=== PATIENT | female | born 1955 | race Caucasian/White ===

== ENCOUNTER 2017-10-08 14:14 | Observation (INO) | payer OTHER, SELFPAY ==
[2017-10-08] MEDS ORDERED: ISOVUE-370 76%-LOCM 1 ML ONE (14:37)
[2017-10-08 14:53] LABS: #Lymphocytes 0.8 thou/uL (1.20-3.40); #Monocytes 0.4 thou/uL (0.11-0.59); #Neutrophils 3.8 thou/uL (1.40-6.50); %Basophils 0.8 % (0.0-1.0); %Eosinophils 0.3 % (0.0-10.0); %Lymphocytes 15.5 % (21.0-51.0); %Monocytes 8.3 % (0.0-10.0); %Neutrophils 75.1 % (42.0-75.0); Hemoglobin 14.6 g/dL (12.0-16.0); Mean Corpuscular HGB CONC 34.2 g/dL (32.0-36.0); Mean Corpuscular Hemoglobin 34.1 pg (27.0-31.0); Mean Corpuscular Volume 99.7 fl (81.0-99.0); Mean Platelet Volume 8.9 fL (7.4-10.4); Platelet Count 145 thou/uL (130-400); RBC Distribution Width 11.3 % (11.5-14.5); Red Blood Cell (RBC) Count 4.28 mill/uL (4.20-5.40); White Blood Cell (WBC) Count 5.1 thou/uL (4.8-10.8)
[2017-10-08 15:14] LABS: ALT (SGPT) 24 U/L (8-55); AST (SGOT) 23 U/L (5-34); Albumin 4.9 g/dL (3.5-5.0); Alkaline Phosphatase 72 U/L (40-150); Anion Gap 15 mmol/L (10-20); BUN (Urea Nitrogen) 14 mg/dL (9.8-20.1); Bilirubin, Total 0.7 mg/dL (0.2-1.2); CK (CPK) 122 U/L (29-168); Calc. Creatinine Clearance 0 mL/min (70-130); Calcium 9.8 mg/dL (7.8-10.44); Carbon Dioxide 25 mmol/L (22-29); Chloride 105 mmol/L (98-107); Estimated GFR-MDRD 78; Glucose 94 mg/dL (70-105); Lipase 8 U/L (8-78); Protein, Total 7.9 g/dL (6.0-8.3); Sodium 141 mmol/L (136-145)
[2017-10-08 15:17] LABS: CKMB 2.1 ng/mL (0-6.6); Troponin I Less than 0.010 ng/mL (< 0.028)
--- NOTE | 2017-10-08 15:27 | RAD ---
CHEST 1 VIEW: Date: 10/08/17 HISTORY: Altered mental status. FINDINGS: No comparison. Cardiac silhouette is magnified by projection. Lungs are hyperinflated. Mediastinum is midline. Pulmo nary vasculature is unremarkable. There is no lobar consolidation or evidence of pneumothorax. Cardia c monitor leads overlie the chest. IMPRESSION: COPD. POS: [facility]
--- NOTE | 2017-10-08 15:28 | CT ---
CT HEAD NONCONTRAST DATE: 10/08/17 HISTORY: Altered mental status. FINDINGS: No comparison. There is no evidence of acute intracranial hemorrhage or infarct. The ventricles appear normal in siz e, shape, and position. There is no mass effect or shift of midline structures. Visualized paranasal sinuses remain well aerated. IMPRESSION: No acute intracranial abnormalities are demonstrated on noncontrast CT head. POS: [facility]
[2017-10-08 17:02] VITALS: BMI 24.3
--- NOTE | 2017-10-08 17:50 | HP ---
HISTORY OF PRESENT ILLNESS: Mrs. Woodruff is a 62-year-old woman, earlier today while attendin g some sport event with her children, she suddenly became confused and was repeating herself did not know where she was. This lasted about 1.5 hour. There was no associated physical weakness. She was brought to the ER. She was felt to have possible TIA. She has been admitted for evaluation and man agement. She denies any prior headache, denies any seizure, and denies any similar event in the past . PAST MEDICAL HISTORY: Remarkable for possibly hypertension. She claimed that she was told that she had a white coat hypertension and she was not on any medications. She denies diabetes, heart disease , lung disease, or liver disease. PAST SURGICAL HISTORY: Remarkable for tonsillectomy. ALLERGIES: She does not have any known allergy to medication. SOCIAL HISTORY: She denies any history of cigarette smoking, ETOH abuse or drug abuse. FAMILY HISTORY: Reviewed and is not contributory. MEDICATIONS: Prior to admission, she was not on any medication. REVIEW OF SYSTEMS: Constitutional: She denies any fever, denies any weakness. HEENT: No headache, no ocular pain, no sore throat, no rhinorrhea, no earache, no epistaxis. Neck: No neck pain, no ne ck stiffness. Cardiovascular: No shortness of breath. No chest pain. Pulmonary: No coughing. Ga strointestinal: No nausea, no vomiting, no diarrhea, no abdominal pain. Genitourinary: No dysuria, no hematuria. Endocrinology: No heat or cold intolerance. No polyuria, polydipsia or polyphagia. Musculoskeletal: No arthralgia, no myalgia. Hematology: No abnormal bleeding, no ecchymosis. Lym phatics: No palpable lymphadenopathy. No painful lymphadenopathy. Skin: No rash, no itching. All ergies: No hayfever. Neurological: No seizure. Psychiatric: No anxiety and no depression. PHYSICAL EXAMINATION: GENERAL: At the current time, she is alert and oriented, in no distress. VITAL SIGNS: Her latest vital signs show a temperature of 97.2, pulse rate 90, respiratory rate 17, and blood pressure 174/106. HEENT: Head is normocephalic and atraumatic. Both of her pupils are equally reactive. Ears and nos e are normal. Oral mucosa is moist. Pharyngeal area is clear. NECK: Supple. There is no distention of the jugular vein. No lymphadenopathy felt. Thyroid gland is not palpable. There is no carotid bruit. CHEST: Symmetrical with regular S1, S2. LUNGS: Clear. ABDOMEN: Soft. Bowel sounds heard. I could not appreciate any organomegaly. There is no focal are a of tenderness. EXTREMITIES: Limbs showed no edema. NEUROLOGIC: She moves all extremities. LABORATORY DATA: Chemistry and electrolytes are done today show sodium of 141, potassium of 4, chlor ramila of 105, CO2 of 25, BUN of 14, creatinine of 0.76, glucose of 94, calcium of 9.8, total bilirubin of 0.7, AST of 23, ALT of 24, alkaline phosphatase of 72. Troponin is less than 0.01. BNP 71.8, tot al protein 7.9, albumin 4.9, globulin 3.0, lipase 8. CBC showed WBC of 5.1, hemoglobin of 14.6, topher tocrit of 42.7, MCV of 99.7, and platelets of 145. IMAGING: Chest x-ray was reported to be sluggish consistent with COPD. Brain CT was reported to ananya w no acute abnormality. ASSESSMENT AND PLAN: This is a 62-year-old woman with history of hypertension and hyperlip idemia, who was admitted with sudden onset of confusion, which lasted about 90 minutes. The patient has not been on any medications, has not been on any narcotics, and not on benzodiazepine. Suspect p ossible transient ischemic attack evaluation is in progress. The patient will be admitted to the [facility]. She is started on aspirin and statin. We will check a CT angiogram of head and neck. Armando rology consult was called. Further evaluation and management will depend on the course of the hospit alization and her response to therapy. We will followup her urine drug screen. Her blood pressure w as noticed to be elevated. We will start her on enalapril IV p.r.n. and will initiate therapy with p .o. beta-jeffrey, namely metoprolol.
[2017-10-08] MEDS ORDERED: Enalaprilat Dihydrate 1.25 MG/ML VIAL SLOW IVP PRN (18:12)
[2017-10-08 18:50] LABS: Syphilis Antibody Nonreactive (Nonreactive); Syphilis Antibody Index 0.05 S/CO (<1.00 Non-Reactive)
--- NOTE | 2017-10-08 19:08 | CT ---
CT ANGIOGRAM BRAIN WITH IV CONTRAST AND 3D RECONSTRUCTION CT ANGIOGRAM NECK WITH IV CONTRAST AND 3D RECONSTRUCTION 10/08/17 HISTORY: Patient with confusion. Repeating questions. TIA. CT ANGIOGRAM NECK: There is a normal arrangement of the great vessels at the aortic arch which are patent. The most prox imal aspect of the left common carotid artery is partially obscured due to artifact from dense contra st in the innominate vein but is otherwise patent. The bilateral subclavian arteries where visualized are patent. Bilateral common carotid arteries as well as internal carotid arteries are patent. There are codominant and patent bilateral vertebral arteries. The visualized upper lung zones are clear. Mild degenerative changes are seen in the spine. The right submandibular gland is small in size which may be developmental in origin. There is no lymp hadenopathy seen. Thyroid gland is normal in appearance. There is a small mucus retention cyst seen in the left maxillary antrum. IMPRESSION: Patent bilateral internal carotid arteries and patent bilateral vertebral arteries according to NASCE T criteria. CT ANGIOGRAM BRAIN: The anterior cerebral and middle cerebral arteries are patent bilaterally. There is a patent anterior communicating artery visualized. There is a type origin of the left posterior cerebral artery which is patent. The basilar artery and each posterior cerebral artery are patent. No aneurysm is seen within the limitations of the technique of this examination. IMPRESSION: 1. No focal stenosis or branch occlusion is seen involving the [place] or vertebrobasil ar system. 2. No aneurysm is identified within the limitations of the technique of this examination. POS: [facility]
[2017-10-08] MEDS ORDERED: Melatonin 3 MG TAB PO SCH (20:15)
[2017-10-08] MEDS: Metoprolol Tartrate 25 MG TAB PO SCH (20:58)
[2017-10-08] MEDS ORDERED: Atorvastatin Calcium 40 MG TAB PO SCH (21:00)
[2017-10-09 05:50] LABS: ALT (SGPT) 20 U/L (8-55); AST (SGOT) 20 U/L (5-34); Albumin 4.2 g/dL (3.5-5.0); Alkaline Phosphatase 61 U/L (40-150); Anion Gap 11 mmol/L (10-20); BUN (Urea Nitrogen) 13 mg/dL (9.8-20.1); Bilirubin, Total 0.7 mg/dL (0.2-1.2); Calc. Creatinine Clearance 101 mL/min (70-130); Calcium 9.3 mg/dL (7.8-10.44); Carbon Dioxide 27 mmol/L (22-29); Cardiac Risk 3.2 (Less than 4.5); Chloride 106 mmol/L (98-107); Cholesterol 211 mg/dl (< 200 Desired); Estimated GFR-MDRD 83; Globulin 2.3 g/dL (2.4-3.5); Glucose 90 mg/dL (70-105); HDL Cholesterol 65 mg/dL (>60 Neg Risk); LDL Cholesterol, Calculated 133 mg/dL; Potassium 4.1 mmol/L (3.5-5.1); Protein, Total 6.5 g/dL (6.0-8.3); Sodium 140 mmol/L (136-145); Triglycerides 66 mg/dL (Less than 150)
[2017-10-09] MEDS: Metoprolol Tartrate 25 MG TAB PO SCH (08:31)
[2017-10-09] MEDS ORDERED: Enoxaparin Sodium 30 MG/0.3 ML SYRINGE SC SCH (09:00)
[2017-10-09] MEDS ORDERED: Aspirin 325 mg Enteric Coated Tablet PO SCH (09:00)
--- NOTE | 2017-10-09 09:18 | PDOC.PN ---
- Subjective Encounter Start Date: 10/09/17 Encounter Start Time: 08:40 No complaint.. - Objective Vital Signs & Weight: Vital Signs (12 hours) Temp Pulse Resp BP Pulse Ox 10/09/17 07:39 97.7 F 73 18 155/100 H 97 10/09/17 04:00 98.1 F 70 12 154/100 H 99 10/08/17 23:47 98.0 F 65 16 133/93 H 99 Weight Weight 170 lb Result Diagrams: 10/08/17 14:48 10/09/17 04:49 Phys Exam - Physical Examination Constitutional: NAD HEENT: PERRLA Neck: no JVD Respiratory: clear to auscultation bilateral Cardiovascular: RRR Gastrointestinal: soft Musculoskeletal: no edema Neurological: moves all 4 limbs Psychiatric: A&O x 3 Dx/Plan (1) TIA (transient ischemic attack) Status: Acute Plan: f/u with neurology.. Comment: w/u negative so far. (2) HTN (hypertension) Code(s): I10 - ESSENTIAL (PRIMARY) HYPERTENSION Status: Acute Plan: increase Lopressor to 50 mg bid. Comment: BP is elevated.. (3) Hyperlipidemia Code(s): E78.5 - HYPERLIPIDEMIA, UNSPECIFIED Status: Acute Plan: Started on Statin. - Plan * .
--- NOTE | 2017-10-09 11:34 | MRI ---
BRAIN MRI WITH AND WITHOUT CONTRAST: Date: 10/09/17 INDICATION: TIA. Reference made to preceding head CT, 10/08/17. FINDINGS: No evidence of ventriculomegaly, mass effect, midline shift, or acute territorial infarction. No intr acranial hemorrhagic susceptibility is present. There are no significant signal abnormalities in the brain parenchyma. No pathologic intra-axial enhancement. Retention cyst formation seen at the posteri or left maxillary sinus. Imaged skull base flow-voids are maintained. IMPRESSION: Normal contrast enhanced brain MRI. POS: [facility]
[2017-10-09 11:55] VITALS: BP 142/95; TEMP 98.3
--- NOTE | 2017-10-09 16:05 | CON ---
DATE OF CONSULTATION: 10/09/2017 CONSULTING PHYSICIAN: Hospitalist Service. IMPRESSION: 1. Transient amnestic episode. 2. Hypertension. 3. Hyperlipidemia with a good ratio. PLAN: 1. Aspirin 81 mg per day. 2. Address blood pressure. 3. MRI of the brain. 4. Carotid ultrasound. Ms. Woodruff is a 62-year-old white female with no known past history. She presented yesterday with an e pisode of transient amnesia, lasting approximately an hour and a half. She had conversations with he r children and sister and only remembers pieces of what took place. She apparently drove home from a baseball field without any difficulty. She remembers the code to get into the garage. She was othe rwise performing in a normal fashion. She does not recall any type of headache, nausea, vomiting, ve rtigo, lateralized weakness or numbness. She has no history of migraine or TIA. She came into the e mergency room last night and had a CT of the brain and CT angiogram, either of which showed anything remarkable. Her laboratory studies were otherwise negative for any metabolic abnormalities. She has not used any illicit drugs. She has taken some Sudafed recently for sinus problems. She was noted to be hypertensive with diastolics around 93 to 100. PAST MEDICAL HISTORY: Otherwise, negative. ALLERGIES: None. SOCIAL HISTORY: No tobacco or illicit drug use. FAMILY HISTORY: Positive for hypertension, hyperlipidemia. REVIEW OF SYSTEMS: Otherwise, negative. No history of seizures. PHYSICAL EXAMINATION: VITAL SIGNS: Blood pressure 155/100, pulse 73, respirations 18, temperature 97.7. HEENT: Pupils equal and reactive. Conjunctivae clear. Oropharynx is clear. NECK: Supple. EXTREMITIES: No cyanosis. NEUROLOGIC: She is alert and appropriate. Her speech is fluent and clear. Cranial nerves are intac t. Motor exam showed symmetric strength. There was no fix or drift. No tremor or dysmetria was pre sent. Sensation was intact to light touch. She can walk independently. IMAGING: Reviewed. EKG shows a normal sinus rhythm. SUMMARY: A middle-aged woman with a history of undiagnosed hypertension, who presents with transient amnesia, etiologies could include transient global amnesia, TIA or confusional migraine. We would c omplete a workup and start her on aspirin and medication to address her blood pressure.
[2017-10-09] MEDS ORDERED: Metoprolol Tartrate 50 MG TAB PO SCH (21:00)
[2017-10-10 12:06] LABS: ANA Symphony (Qualitative) Negative (Negative); dsDNA IgG Antibody 6.6 IU/mL (<10 Negative)
--- NOTE | 2017-10-10 19:42 | DIS ---
DATE OF ADMISSION: 10/08/2017 DATE OF DISCHARGE: 10/09/17. ADMITTING DIAGNOSIS: Urinary tract infection. PRIMARY DIAGNOSIS: Urinary tract infection. SECONDARY DIAGNOSIS: Hypertension. DISCHARGE DIAGNOSES: As above. NAIL SETTER: Dr. Rome. PROCEDURES PERFORMED: Brain MRI, CT of the brain, CT angiogram of the neck and brain. COURSE OF HOSPITALIZATION: Uncomplicated. Responded well to management. The Patient is clinically stable at this time being discharged home. For discharge medications, please see discharge medicatio n reconciliation sheet. The patient is to follow up with her primary care physician in the [facility] and also with Dr. Rome. For today's progress note, please refer to patient's medical record progress note section.
--- NOTE | 2017-11-18 13:59 | EKG ---
Test Reason : Blood Pressure : / mmHG Vent. Rate : 090 BPM Atrial Rate : 090 BPM P-R Int : 162 ms QRS Dur : 076 ms QT Int : 366 ms P-R-T Axes : 051 -07 033 degrees QTc Int : 447 ms Normal sinus rhythm Possible Left atrial enlargement Borderline ECG Confirmed by MIRIAM HUDSON, DERECK ([id number]), video editor PEGGY GRIFFITH ([id number]) on 11/18/2017 1:59:02 PM Referred By: Confirmed By:DERECK PINEDA MD
== END 2017-10-09 13:22 | disposition home or self-care (01) ==
LOC: ERS 14:14 → 2SE 15:26
PROVIDERS: ADMIT Hospitalist; ATTEND Hospitalist
DX: G45.4 Transient global amnesia (principal); N39.0 Urinary tract infection, site not specified; I10 Essential (primary) hypertension; E78.5 Hyperlipidemia, unspecified
CPT/HCPCS: 36415; 70450; 70496; 70498; 70553; 71045; 80053; 80061; 82550; 82553; 83690; 83880; 84484; 85025; 85652; 86038; 86225; 86780; 93005; 93306; A4216; G0378; J1650

== ENCOUNTER 2019-03-08 12:30 | Outpatient (CLI) | payer BC ==
--- NOTE | 2019-03-14 09:03 | MMO ---
Bilateral MAMMO Bilat Screen [facility]. CLINICAL HISTORY: Patient is 63 years old and is seen for screening. The patient has no family history of breast cancer. The patient has no personal history of cancer. VIEWS: The views performed were: bilateral craniocaudal with tomosynthesis; bilateral mediolateral oblique with tomosynthesis; and bilateral exaggerated craniocaudal. FILMS COMPARED: The present examination has been compared to prior imaging studies performed at [facility] on 04/26/2013 and 11/17/2015. MAMMOGRAM FINDINGS: There are scattered fibroglandular densities. There are no suspicious masses, suspicious calcifications, or new areas of architectural distortion. IMPRESSION: THERE IS NO MAMMOGRAPHIC EVIDENCE OF MALIGNANCY. A ROUTINE FOLLOW-UP MAMMOGRAM IN 1 YEAR IS RECOMMENDED. THE RESULTS OF THIS EXAM WERE SENT TO THE PATIENT. ACR BI-RADS Category 1 - Negative MAMMOGRAPHY NOTE: 1. A negative mammogram report should not delay a biopsy if a dominant of clinically suspicious mass is present. 2. Approximately 10% to 15% of breast cancers are not detected by mammography. 3. Adenosis and dense breasts may obscure an underlying neoplasm. Reported by: FERNANDA MARINA MD Electonically Signed: [id number]
== END 2019-03-08 12:31 | disposition home or self-care (01) ==
LOC: BICMAMMO 12:30
PROVIDERS: ATTEND Advanced Practice Midwife
DX: Z12.31 Encounter for screening mammogram for malignant neoplasm of breast (principal)
CPT/HCPCS: 77063; 77067